=== PATIENT | female | born 1990 | race Caucasian/White ===

== ENCOUNTER 2017-01-21 00:29 | Emergency (ER) | payer BC, OTHER ==
[~2017-01-21] VITALS: Ht 149.9 cm; Wt 103.0 kg
[2017-01-21 00:33] VITALS: Ht 149.9 cm; Wt 103.0 kg
[2017-01-21] MEDS ORDERED: ACET1TAB40 PO (06:56)
[2017-01-21] MEDS ORDERED: AMO500 PO (06:56)
[2017-01-21] MEDS ORDERED: HYDROCODONE/APAP (5/325) TAB PO ONE (07:00)
[2017-01-21 07:11] VITALS: BP 116/81; PULSE 74; RESP 18; TEMP 97.8
--- NOTE | 2017-01-22 21:12 | ERD ---
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 Patient thinks that the tooth pain is caused by her wisdom tooth trying to come out. Described headache as pressure-like sensation. She has not seen a dentist for her toothache. She took 200 mg of Advil at home without relief of pain. Denies fever or chills. Denies facial swelling. Denies shortness of breath. ROS All systems reviewed and are negative except as per history of present illness. 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 01/21/17 Reported Medications [None] No Conflict Check 04/23/10 Allergies Allergies: Coded Allergies: No Known Drug Allergy (Verified Allergy, Unknown, 04/29/10) PMhx/Soc Medical and Surgical Hx: pt denies Medical Hx History of Surgery: No Anesthesia Reaction: No Hx Neurological Disorder: No Hx Respiratory Disorders: No Hx Cardiac Disorders: No Hx Psychiatric Problems: No Hx Miscellaneous Medical Probl: No Hx Alcohol Use: No Hx Substance Use: No Hx Tobacco Use: No Smoking Status: Never smoker Physical Exam Vitals Vital Signs Date Time Temp Pulse Resp B/P Pulse Ox O2 Delivery O2 Flow Rate FiO2 01/21/17 07:11 97.8 74 18 116/81 100 Room Air 01/21/17 00:33 98.7 75 18 130/90 99 Physical Exam General: Well-developed, well-nourished, conscious and coherent, in no distress Skin: Warm and dry without rash, good texture and turgor Head: Normocephalic without evidence of trauma Eyes: Sclera and conjunctivae normal; pupils equal, round, and reactive to light; extraocular movements are intact Ears: Canals are patent. Tympanic membranes are clear Mouth/throat: Mucous membranes are moist. Posterior pharynx clear without erythema or exudates. Multiple dental caries noted. Right upper second molar tender and erythematous at the base. No tenderness over the space for the third molar. Neck: Supple without meningismus or adenopathy. Carotids are equal. Trachea midline. No bruits or JVD Chest: Normal AP diameter. Good expansion without retractions. Nontender. Lungs are clear to auscultate bilaterally with good tidal volume Heart: Regular rate and rhythm. No murmur, rub, or gallops heard Extremities: Full range of motion. Good strength bilaterally. No clubbing, cyanosis, or edema. Peripheral pulses are intact. Sensation intact Neuro: Alert and oriented 4, GCS 15. Cranial nerves grossly intact. Motor and sensory exams nonfocal. Moves all extremities. Speech clear. Gait normal Results 24 hrs Current Medications Medications (Trade) Dose Ordered Sig/Herber Route PRN Reason Start Time Stop Time Status Last Admin Dose Admin Acetaminophen/ Hydrocodone Bitart ([place] (5/325)) 1 tab ONCE ONCE PO 01/21/17 07:00 01/21/17 07:01 DC 01/21/17 06:59 Procedures/MDM Well-appearing 26-year-old female presented ED with toothache 2 days. Based on my exam findings, I suspect that her toothache is more likely due to infected dental caries or abscess or other than wisdom tooth. Patient advised to follow-up with a dentist OZZY. Probably referral for [facility] provided to the patient. Patient appears well, stable for discharge and outpatient management. Medical decision making shared with patient and family. Education provided to patient and family. Patient and family expressed understanding of the plan. Medications on discharge: Amoxicillin, Tylenol No. 3. Follow-up: Dentist OZZY. Disclaimer: Inadvertent spelling and grammatical errors are likely due to EHR/ dictation software use and do not reflect on the overall quality of patient care. Also, please note that the electronic time recorded on this note does not necessarily reflect the actual time of the patient encounter. Departure Diagnosis: Primary Impression: Toothache Additional Impression: Anxiety Condition: Stable Patient Instructions: Your Body's Response to Anxiety, Dental Pain Referrals: COMM[facility]ITY CLINICS YOU HAVE RECEIVED A MEDICAL SCREENING EXAM AND THE RESULTS INDICATE THAT YOU DO NOT HAVE A CONDITION THAT REQUIRES URGENT TREATMENT IN THE EMERGENCY DEPARTMENT. FURTHER EVALUATION AND TREATMENT OF YOUR CONDITION CAN WAIT UNTIL YOU ARE SEEN IN YOUR DOCTORS OFFICE WITHIN THE NEXT 1-2 DAYS. IT IS YOUR RESPONSIBILITY TO MAKE AN APPOINTMENT FOR FOLOW-UP CARE. IF YOU HAVE A PRIMARY DOCTOR --you should call your primary doctor and schedule an appointment IF YOU DO NOT HAVE A PRIMARY DOCTOR YOU CAN CALL OUR PHYSICIAN REFERRAL HOTLINE AT IF YOU CAN NOT AFFORD TO SEE A PHYSICIAN YOU CAN CHOSE FROM THE FOLLOWING [facility] CLINICS [facility] [address] [facility] [address] [facility] [facility] [address] [facility] [address] [facility] [address] [facility]. [facility] [address] [facility] D[facility] ([facility] walk in clinic) Additional Instructions: Follow up with a dentist OZZY. Follow up with your primary provider for anxiety. DAVID KHAN NP Jan 22, 2017 21:12
== END 2017-01-21 07:11 | disposition home or self-care (01) ==
LOC: FTE 00:29
DX: K08.89 Other specified disorders of teeth and supporting structures (principal); F41.9 Anxiety disorder, unspecified
CPT/HCPCS: Z7502; Z7610; 99283

== ENCOUNTER 2018-04-01 10:19 | Emergency (ER) | END 2018-04-01 13:21 | disposition home or self-care (01) ==

== ENCOUNTER 2018-04-10 15:17 | Emergency (ER) | END 2018-04-10 16:31 | disposition home or self-care (01) ==